=== PATIENT | female | born 2000 | race Caucasian/White ===

== ENCOUNTER 2020-09-21 20:51 | Emergency (ER) | payer MEDICAID ==
[~2020-09-21] VITALS: Ht 160 cm; Wt 86.2 kg
[2020-09-21 21:09] VITALS: BP_SYST 119
[2020-09-21] MEDS: NACL 0.9% 1,000 ML IV ONE (21:45)
[2020-09-21 21:52] LABS: BASOPHILS % (AUTO) 0.5 % (0.0-2.0); EOSINOPHILS # (AUTO) 0.1 K/uL (0.0-0.4); EOSINOPHILS % (AUTO) 0.6 % (0.0-4.0); HEMATOCRIT 35.4 % (36-48); HEMOGLOBIN 11.8 g/dL (12.0-16.0); LYMPHOCYTES # (AUTO) 1.6 K/uL (1.0-5.5); LYMPHOCYTES % (AUTO) 18.6 % (20.5-51.5); MEAN CORPUSCULAR HEMOGLOBIN 28 pg (27-31); MEAN CORPUSCULAR HGB CONC 33 % (32-36); MEAN CORPUSCULAR VOLUME 84 fL (79.0-98.0); MONOCYTES # (AUTO) 0.6 K/uL (0.0-1.0); MONOCYTES % (AUTO) 7.1 % (1.7-9.3); NEUTROPHILS # (AUTO) 6.1 K/uL (1.8-7.7); NEUTROPHILS % (AUTO) 73.2 % (40.0-70.0); PLATELET COUNT (AUTO) 255 K/uL (130-430); RED BLOOD CELL COUNT(AUTO) 4.22 MIL/uL (4.2-6.2); RED CELL DISTRIBUTION WIDTH 13.3 % (9.0-15.0); WHITE BLOOD COUNT (AUTO) 8.3 K/uL (4.5-11.0)
[2020-09-21] MEDS: DIPHENHYDRAMINE INJ 50 MG/ML VIAL IVP ONE (21:59)
[2020-09-21] MEDS: METOCLOPRAMIDE HCL 10 MG/2 ML VIAL IVP ONE (22:01)
[2020-09-21 22:06] LABS: CALCIUM 9.4 mg/dL (8.4-11.0); CREATININE 0.47 mg/dL (0.55-1.30); POTASSIUM 3.8 mmol/L (3.5-5.1)
[2020-09-21 22:12] LABS: ALBUMIN 3.8 g/dL (3.4-4.8); TOTAL BILIRUBIN 0.2 mg/dL (0.0-1.0)
[2020-09-21 23:24] LABS: BILIRUBIN,URINE NEGATIVE (NEGATIVE); BLOOD, URINE 3+ (NEGATIVE); GLUCOSE,URINE NEGATIVE (NEGATIVE); KETONES,URINE NEGATIVE (NEGATIVE); LEUKOCYTE ESTERASE ,URINE TRACE (NEGATIVE); NITRITE, URINE NEGATIVE (NEGATIVE); PROTEIN URINE 2+ (NEGATIVE); UROBILINOGEN,URINE 0.2 (0.2-1.0)
[2020-09-21 23:26] LABS: CLARITY/URINE CLOUDY (CLEAR)
[2020-09-21 23:30] LABS: BACTERIA,URINE FEW /HPF (None Seen); COLOR,URINE RED (YELLOW); RBC,URINE >100 /HPF (0-3)
[2020-09-22] MEDS ORDERED: CEPH250C PO (00:37)
[2020-09-22 00:51] VITALS: BP_SYST 138
== END 2020-09-22 00:51 | disposition home or self-care (01) ==
LOC: SED 20:51
DX: R51.9 Headache, unspecified (principal); N94.6 Dysmenorrhea, unspecified; R10.9 Unspecified abdominal pain; Z79.899 Other long term (current) drug therapy
CPT/HCPCS: 36415; 80053; 81000; 83690; 85025; 87086; 96361; 96374; 96375; 99284; J1200; J2765; J7030

== ENCOUNTER 2021-04-13 18:16 | Emergency (ER) | payer MEDICAID ==
[~2021-04-13] VITALS: Ht 160 cm; Wt 86.2 kg
[~2021-04-13 18:16] MED LIST: CEPH250C PO
[2021-04-13 18:22] VITALS: BP_SYST 131
--- NOTE | 2021-04-13 18:36 | NUR ---
Pt brought by self, A&Ox4, pt presents to ER with lower back pain radiating to R leg, VSS, respirations even and unlabored, cap refill <3, VSS.
--- NOTE | 2021-04-13 18:50 | NUR ---
Patient to ER bed 03 to gown for evaluation. Side rails up.
--- NOTE | 2021-04-13 19:00 | NUR ---
ER physician at bedside.
[2021-04-13] MEDS ORDERED: DIAZEPAM 5 MG TABLET (VALIUM) PO ONE (19:30)
[2021-04-13] MEDS ORDERED: KETOROLAC TROMETHAMINE 30 MG VIAL IM ONE (19:30)
[2021-04-13 19:41] LABS: BILIRUBIN,URINE NEGATIVE (NEGATIVE); BLOOD, URINE NEGATIVE (NEGATIVE); CLARITY/URINE CLEAR (CLEAR); COLOR,URINE YELLOW (YELLOW); GLUCOSE,URINE NEGATIVE (NEGATIVE); KETONES,URINE NEGATIVE (NEGATIVE); LEUKOCYTE ESTERASE ,URINE NEGATIVE (NEGATIVE); NITRITE, URINE NEGATIVE (NEGATIVE); PROTEIN URINE NEGATIVE (NEGATIVE); UROBILINOGEN,URINE 0.2 (0.2-1.0)
[2021-04-13 20:52] VITALS: BP_SYST 116
--- NOTE | 2021-04-13 20:53 | NUR ---
Patient given written and verbal discharge instructions and verbalizes understanding. ER MD discussed with patient the results and treatment provided. Patient in stable condition. ID arm band removed. Patient educated on pain management and to follow up with PMD. Pain Scale . Opportunity for questions provided and answered. Medication side effect fact sheet provided.
== END 2021-04-13 20:53 | disposition home or self-care (01) ==
LOC: SED 18:16 → MERGE 18:16 → SED 20:53
DX: M54.41 Lumbago with sciatica, right side (principal)
CPT/HCPCS: 36415; 81003; 81025; 84703; 96372; 99283; J1885

== ENCOUNTER 2022-01-27 21:53 | Emergency (ER) | payer MEDICAID ==
[~2022-01-27] VITALS: Ht 160 cm; Wt 93.0 kg
[2022-01-27 22:07] VITALS: BP_SYST 122
--- NOTE | 2022-01-27 22:15 | NUR ---
Patient triaged and placed in waiting room. VSS and patient appears in no acute distress at this time. Accompanied by mother, awaiting available bed.
--- NOTE | 2022-01-27 23:15 | NUR ---
MD MARES IN TRIAGE RM EXAMINING PT.
--- NOTE | 2022-01-27 23:24 | NUR ---
COVID/FLU SWAB COLLECTED AND SENT TO LAB.
[2022-01-27] MEDS ORDERED: ACETAMINOPHEN 500 MG TABLET PO ONE (23:30)
[2022-01-27] MEDS ORDERED: ONDANSETRON 4 MG ODT TAB PO ONE (23:30)
[2022-01-27] MEDS ORDERED: IBUP-1969 PO (23:30)
[2022-01-27] MEDS ORDERED: ACET-2634 PO (23:30)
[2022-01-27] MEDS ORDERED: IBUPROFEN 600 MG TABLET PO ONE (23:30)
[2022-01-27] MEDS ORDERED: ONDA-8 TL (23:30)
--- NOTE | 2022-01-28 | NUR ---
Patient given written and verbal discharge instructions and verbalizes understanding. ER MD Zhao discussed with patient the results and treatment provided. Patient in stable condition. ID arm band removed. Rx of Acetaminophen Xtra str, Ibyprofen, and Zofran sent to prefered pharmacy. Patient educated on pain management and to follow up with PMD. Opportunity for questions provided and answered. Medication side effect fact sheet provided.
[2022-01-28 00:02] VITALS: BP_SYST 116
--- NOTE | 2022-01-28 05:23 | NUR ---
Called pt and left a voice mail regarding (+)Covid results. [phone]
== END 2022-01-28 00:02 | disposition home or self-care (01) ==
LOC: SED 21:53
DX: U07.1 COVID-19 (principal); R05.9 Cough, unspecified; R51.9 Headache, unspecified; R50.9 Fever, unspecified; F17.200 Nicotine dependence, unspecified, uncomplicated; Z79.899 Other long term (current) drug therapy
CPT/HCPCS: 99284; 87426; 36415; 81025; 87804 ×2; Q0162

== ENCOUNTER 2022-09-07 21:09 | Emergency (ER) | payer MEDICAID ==
[~2022-09-07] VITALS: Ht 160 cm; Wt 88.5 kg
[~2022-09-07 21:09] MED LIST changes: +ACET-2634 PO; +IBUP-1969 PO; +ONDA-8 TL
[2022-09-07 21:22] VITALS: BP_SYST 117; PULSE 84; RESP 15; TEMP 98.2; O2SAT 99
[2022-09-07] MEDS ORDERED: METOCLOPRAMIDE HCL 10 MG TABLET PO ONE (21:45)
[2022-09-07] MEDS ORDERED: DIPHENHYDRAMINE HCL 25 MG CAPSULE PO ONE (21:45)
[2022-09-07] MEDS ORDERED: ACETAMINOPHEN 325 MG TABLET PO ONE (21:45)
[2022-09-07 22:20] LABS: BASOPHILS % (AUTO) 0.4 % (0.0-2.0); EOSINOPHILS # (AUTO) 0.1 K/uL (0.0-0.4); EOSINOPHILS % (AUTO) 0.4 % (0.0-4.0); HEMATOCRIT 36.7 % (36-48); HEMOGLOBIN 11.7 g/dL (12.0-16.0); LYMPHOCYTES # (AUTO) 1.6 K/uL (1.0-5.5); MEAN CORPUSCULAR HEMOGLOBIN 26 pg (27-31); MEAN CORPUSCULAR HGB CONC 32 % (32-36); MEAN CORPUSCULAR VOLUME 80 fL (79.0-98.0); MONOCYTES # (AUTO) 0.5 K/uL (0.0-1.0); MONOCYTES % (AUTO) 4.5 % (1.7-9.3); NEUTROPHILS # (AUTO) 9.9 K/uL (1.8-7.7); NEUTROPHILS % (AUTO) 81.7 % (40.0-70.0); PLATELET COUNT (AUTO) 334 K/uL (130-430); RED CELL DISTRIBUTION WIDTH 15.9 % (9.0-15.0); WHITE BLOOD COUNT (AUTO) 12.1 K/uL (4.8-10.8)
[2022-09-07 22:25] LABS: CALCIUM 8.3 mg/dL (8.4-11.0); CREATININE 0.58 mg/dL (0.55-1.30)
[2022-09-07 22:30] LABS: ALBUMIN 3.9 g/dL (3.4-4.8); TOTAL BILIRUBIN 0.3 mg/dL (0.0-1.0)
[2022-09-07 22:44] LABS: HCG,QUAL RESULT NEGATIVE (NEGATIVE)
[2022-09-07 22:52] LABS: BILIRUBIN,URINE NEGATIVE (NEGATIVE); BLOOD, URINE 3+ (NEGATIVE); CLARITY/URINE CLOUDY (CLEAR); COLOR,URINE RED (YELLOW); GLUCOSE,URINE NEGATIVE (NEGATIVE); KETONES,URINE TRACE (NEGATIVE); LEUKOCYTE ESTERASE ,URINE TRACE (NEGATIVE); NITRITE, URINE NEGATIVE (NEGATIVE); PROTEIN URINE 2+ (NEGATIVE); UROBILINOGEN,URINE 0.2 (0.2-1.0)
[2022-09-07] MEDS ORDERED: ONDANSETRON HCL 4 MG/2 ML VIAL IVP ONE (23:00)
[2022-09-07] MEDS ORDERED: NACL 0.9% 1,000 ML IV ONE (23:00)
[2022-09-07 23:05] LABS: BACTERIA,URINE FEW /HPF (None Seen); MUCUS,URINE None Seen /LPF (None Seen); RBC,URINE >100 /HPF (0-3)
[2022-09-07] MEDS ORDERED: MECLIZINE HCL 25 MG TABLET (ANITVERT) PO ONE (23:45)
[2022-09-08] MEDS ORDERED: MECL-225 PO (00:21)
[2022-09-08] MEDS ORDERED: ONDA-8 TL (00:21)
[2022-09-08] MEDS ORDERED: CEPH-548 PO (00:21)
[2022-09-08 00:41] VITALS: BP_SYST 106; PULSE 83; RESP 16; TEMP 97.9; O2SAT 97
== END 2022-09-08 00:44 | disposition home or self-care (01) ==
LOC: SED 21:09
DX: N30.00 Acute cystitis without hematuria (principal); R11.2 Nausea with vomiting, unspecified; R42 Dizziness and giddiness; R53.1 Weakness; M54.50 Low back pain, unspecified; R07.9 Chest pain, unspecified; Z88.6 Allergy status to analgesic agent; Z79.899 Other long term (current) drug therapy; Z20.822 Contact with and (suspected) exposure to COVID-19
CPT/HCPCS: 99285; 96374; 71045; 96361; 87426; 80053; 81000; 84703; 83690; 85025; 87086; 84484; 36415; 93005; 81025; 87804 ×2; Q0163; J8597 ×2; J2405; J7030